=== PATIENT | female | born 1955 | race Caucasian/White ===

== ENCOUNTER 2017-12-13 11:31 | Outpatient (CLI) | payer BC ==
--- NOTE | 2017-12-13 12:48 | RAD ---
RIGHT KNEE FOUR VIEWS: Clinical history: Pain with radiation. FINDINGS: There is mild osteophytosis. No fracture or dislocation. A minimal degree of joint capsular distensio n is seen. There is a chronic appearing heterotopic density adjacent the superior pole of the patella. IMPRESSION: No acute osseous abnormality of the right knee. POS: [facility]
== END 2017-12-13 11:32 | disposition home or self-care (01) ==
LOC: SCSRAD 11:31
PROVIDERS: ATTEND Family Medicine
DX: M25.561 Pain in right knee (principal); M23.305 Other meniscus derangements, unspecified medial meniscus, unspecified knee

== ENCOUNTER 2018-05-07 11:21 | Outpatient (CLI) | payer BC ==
--- NOTE | 2018-05-07 13:43 | MMO ---
Bilateral MAMMO Bilat Screen [facility]. CLINICAL HISTORY: Patient is 62 years old and is seen for screening. The patient has no family history of breast cancer. The patient has no personal history of cancer. VIEWS: The views performed were: bilateral craniocaudal with tomosynthesis and bilateral mediolateral oblique with tomosynthesis. FILMS COMPARED: The present examination has been compared to prior imaging studies performed at [facility] on 06/23/2014 and 11/04/2016. MAMMOGRAM FINDINGS: There are scattered fibroglandular densities. There are benign appearing calcifications seen in both breasts. There are no suspicious masses, calcifications or areas of architectural distortion. IMPRESSION: CALCIFICATIONS IN BOTH BREASTS ARE BENIGN. A ROUTINE FOLLOW-UP MAMMOGRAM IN 1 YEAR IS RECOMMENDED. THE RESULTS OF THIS EXAM WERE SENT TO THE PATIENT. ACR BI-RADS Category 2 - Benign finding MAMMOGRAPHY NOTE: 1. A negative mammogram report should not delay a biopsy if a dominant of clinically suspicious mass is present. 2. Approximately 10% to 15% of breast cancers are not detected by mammography. 3. Adenosis and dense breasts may obscure an underlying neoplasm.
== END 2018-05-07 11:22 | disposition home or self-care (01) ==
LOC: BICMAMMO 11:21
PROVIDERS: ATTEND Family Medicine
DX: Z12.31 Encounter for screening mammogram for malignant neoplasm of breast (principal); R92.1 Mammographic calcification found on diagnostic imaging of breast
CPT/HCPCS: 77063; 77067

== ENCOUNTER 2019-05-09 13:14 | Outpatient (CLI) | payer BC ==
--- NOTE | 2019-05-09 13:43 | MMO ---
Bilateral MAMMO Bilat Screen [facility]. CLINICAL HISTORY: Patient is 63 years old and is seen for screening. The patient has no family history of breast cancer. The patient has no personal history of cancer. VIEWS: The views performed were: bilateral craniocaudal with tomosynthesis and bilateral mediolateral oblique with tomosynthesis. FILMS COMPARED: The present examination has been compared to prior imaging studies performed at [facility] on 06/23/2014, 11/04/2016 and 05/07/2018. This study has been interpreted with the assistance of computer-aided detection. MAMMOGRAM FINDINGS: There are scattered fibroglandular densities. There are stable benign appearing calcifications seen in both breasts. There are no suspicious masses, suspicious calcifications, or new areas of architectural distortion. IMPRESSION: THERE IS NO MAMMOGRAPHIC EVIDENCE OF MALIGNANCY. A ROUTINE FOLLOW-UP MAMMOGRAM IN 1 YEAR IS RECOMMENDED. THE RESULTS OF THIS EXAM WERE SENT TO THE PATIENT. ACR BI-RADS Category 2 - Benign finding MAMMOGRAPHY NOTE: 1. A negative mammogram report should not delay a biopsy if a dominant of clinically suspicious mass is present. 2. Approximately 10% to 15% of breast cancers are not detected by mammography. 3. Adenosis and dense breasts may obscure an underlying neoplasm. Reported by: JOANIE FOWLER MD Electonically Signed: [id number]
== END 2019-05-09 13:15 | disposition home or self-care (01) ==
LOC: BICMAMMO 13:14
PROVIDERS: ATTEND Family Medicine
DX: Z12.31 Encounter for screening mammogram for malignant neoplasm of breast (principal)
CPT/HCPCS: 77063; 77067

== ENCOUNTER 2019-11-21 08:11 | Outpatient (CLI) | payer BC ==
--- NOTE | 2019-11-21 10:17 | MRI ---
MRI LUMBAR SPINE NONCONTRAST: HISTORY: Lumbar radiculopathy. COMPARISON: Low back pain times many years. FINDINGS: Appropriate T1 marrow signal intensity of the lumbar vertebrae. Lumbar spine vertebral body heights a re maintained. No fracture. No significant STIR hyperintensity to suggest vertebral body edema or ligamentous injury. Appropriate signal intensity of the visualized solid organs and paraspinal muscles Conus medullaris terminates at the inferior aspect of L1. T12-L1:Disc desiccation without significant loss of disc space height. No posterior disc abnormalitie s. No significant central canal stenosis or significant neural foraminal narrowing. Remote Schmorl's node along the inferior endplate of T12. L1-L2:Adequate disc hydration. No posterior disc abnormality. No significant central canal stenosis o r significant neural foraminal narrowing. L2-L3:Adequate disc hydration. No posterior disc abnormality. No significant central canal stenosis o r significant neural foraminal narrowing. L3-L4:Adequate disc hydration. Broad-based disc bulge minimally flattens the thecal sac. Mild ligamen t flavum thickening and facet hypertrophy. Mild central canal stenosis. Patent bilateral neural foramina. L4-L5:Adequate disc hydration. Broad-based disc bulge minimally flattens the ventral thecal sac. Ther e is ligamentum flavum thickening and facet hypertrophy. Mild central canal stenosis. Right neural foramen is patent. There is moderate left foraminal narrowing secondary to a 0.5 cm synovial cyst whi ch partially obscures the foraminal left L4 nerve root. L5-S1:Disc desiccation without significant loss of disc space height. There is a central/right subart icular disc herniation. No significant stenosis of the thecal sac. There is mild displacement of the traversing right S1 nerve root. There is associated annular fissure in the posterior midline disc . Left subarticular zone is patent. Mild bilateral neural foraminal narrowing. IMPRESSION: Degenerative changes of lumbar spine as described above. Transcribed Date/Time: 11/21/2019 11:06 AM
== END 2019-11-21 08:12 | disposition home or self-care (01) ==
LOC: BICMRI 08:11
PROVIDERS: ATTEND Family Medicine
DX: M47.26 Other spondylosis with radiculopathy, lumbar region (principal)
CPT/HCPCS: 72148

== ENCOUNTER 2020-12-01 10:04 | Outpatient (CLI) | payer MEDICARE ==
[2020-12-01 11:01] LABS: Estimated GFR-MDRD - POC Greater than 90
== END 2020-12-01 10:05 | disposition home or self-care (01) ==
LOC: BICMRI 10:04
PROVIDERS: ATTEND Otolaryngology Plastic Surgery within the Head & Neck
DX: K13.79 Other lesions of oral mucosa (principal)
CPT/HCPCS: 70540; 70543; 82565

== ENCOUNTER 2021-11-04 09:12 | Outpatient (CLI) | payer MEDICARE | END 2021-11-04 09:13 | disposition home or self-care (01) | LOC: BICMAMMO 09:12 | PROVIDERS: ATTEND Family Medicine | DX: Z12.31 Encounter for screening mammogram for malignant neoplasm of breast (principal) | CPT/HCPCS: 77063; 77067 ==

== ENCOUNTER 2022-12-13 09:09 | Outpatient (CLI) | payer MEDICARE | END 2022-12-13 09:10 | disposition home or self-care (01) | LOC: BICMAMMO 09:09 | PROVIDERS: ATTEND Family Medicine | DX: Z12.31 Encounter for screening mammogram for malignant neoplasm of breast (principal) | CPT/HCPCS: 77063; 77067 ==

== ENCOUNTER 2024-10-10 12:40 | Outpatient (CLI) | payer MEDICARE, OTHER | END 2024-10-10 12:41 | disposition home or self-care (01) | LOC: BICCT 12:40 | PROVIDERS: ATTEND Family Medicine | DX: Z12.2 Encounter for screening for malignant neoplasm of respiratory organs (principal); R91.8 Other nonspecific abnormal finding of lung field; Z87.891 Personal history of nicotine dependence | CPT/HCPCS: 71271 ==